=== PATIENT | female | born 1955 | race Caucasian/White ===

== ENCOUNTER 2020-03-10 13:24 | Outpatient (CLI) | payer MEDICARE ==
[2020-03-10 13:31] LABS: ABNORMAL LYMPHS % (MANUAL) 0 %; BAND NEUTROPHILS % (MANUAL) 0 %
[2020-03-10 17:02] LABS: ABSOLUTE RETICS # AUTO 0.066 10^6/uL (0.020-0.110); BASOPHILS % (AUTO) 0.4 %; EOSINOPHILS % (AUTO) 1.3 %; HGB - HEMOGLOBIN 12.6 g/dL (12.0-16.0); LYMPHOCYTES % (AUTO) 31.8 %; MEAN CORPUSCULAR HGB CONC 34.2 g/dL (32.0-36.0); MEAN CORPUSCULAR VOLUME 96.3 fL (81.0-99.0); MEAN PLATELET VOLUME 12.1 fL (7.9-10.8); MONOCYTES % (AUTO) 8.3 %; PLT - PLATELET COUNT 209 10^3/uL (130-450); RED BLOOD COUNT 3.82 10^6/uL (4.20-5.40); RED CELL DISTRIBUTION WIDTH 12.2 % (12.0-15.0); WHITE BLOOD COUNT 5.4 x10^3/uL (4.8-10.8)
[2020-03-10 17:10] LABS: ALBUMIN 4.7 g/dL (3.2-5.5); ALBUMIN/GLOBULIN RATIO 1.9 (1.0-2.2); BILIRUBIN,TOTAL 0.9 mg/dL (0.2-1.0); CALCIUM 9.8 mg/dL (8.5-10.3); CREATININE 0.5 mg/dL (0.4-1.0); TOTAL PROTEIN 7.2 g/dL (6.7-8.2)
[2020-03-10 17:56] LABS: LYMPHOCYTES # (MANUAL) 1.4 10^3/uL (1.5-3.5); LYMPHOCYTES % (MANUAL) 26 %; MONOCYTES # (MANUAL) 0.6 10^3/uL (0.0-1.0); PLATELET ESTIMATE, MANUAL NORMAL (130-450,000) (NORMAL); PLATELET MORPHOLOGY 1+ LARGE PLATELETS (NORMAL); RBC MORPHOLOGY (MULTIPLE) NORMAL APPEARANCE (NORMAL)
[2020-03-10 17:57] LABS: DIFFERENTIAL COMMENT MANUAL DIFFERENTIAL
== END 2020-03-10 13:25 | disposition home or self-care (01) ==
LOC: LAB.S 13:24
PROVIDERS: ATTEND Family Medicine
DX: D64.9 Anemia, unspecified (principal); D72.818 Other decreased white blood cell count; E67.3 Hypervitaminosis D; R79.89 Other specified abnormal findings of blood chemistry; E78.89 Other lipoprotein metabolism disorders
CPT/HCPCS: 36415; 80053; 82607; 82746; 83970; 85025; 85045

== ENCOUNTER 2021-02-21 10:53 | Outpatient (CLI) | payer MEDICARE, OTHER ==
--- NOTE | 2021-02-21 11:17 | XRAY Report ---
PROCEDURE: Ribs w/PA Chest LT INDICATIONS: LEFT RIB PAIN FOLLOWING TRAUMA TECHNIQUE: 3 views of the left ribs were acquired, along with a single view chest. COMPARISON: None. FINDINGS: Surgical changes and devices: None. Bones and chest wall: Minimal undulation of the 10th-11th posterolateral left ribs. No dislocations. No suspicious bony lesions. Overlying soft tissues appear unremarkable. Lungs and pleura: No pleural effusions or pneumothorax. Lungs appear clear. Mediastinum: Mediastinal contours appear normal. Heart size is normal. IMPRESSION: Question of nondisplaced left 10-11th posterolateral rib fractures. Lungs are clear. Reviewed by: Jori Graham MD on 02/21/2021 11:16 AM PDT Approved by: Joir Graham MD on 02/21/2021 11:16 AM PDT Station ID: [id number]
== END 2021-02-21 10:54 | disposition home or self-care (01) ==
LOC: DI.S 10:53
PROVIDERS: ATTEND Family Medicine
DX: R07.81 Pleurodynia (principal)

== ENCOUNTER 2021-04-19 12:39 | Outpatient (CLI) | payer MEDICARE, OTHER ==
[2021-04-19 15:18] LABS: BASOPHILS % (AUTO) 0.4 %; EOSINOPHILS # (AUTO) 0.1 10^3/uL (0.0-0.7); EOSINOPHILS % (AUTO) 1.9 %; HCT - HEMATOCRIT 39.5 % (37.0-47.0); HGB - HEMOGLOBIN 13.2 g/dL (12.0-16.0); LYMPHOCYTES # (AUTO) 1.6 10^3/uL (1.5-3.5); LYMPHOCYTES % (AUTO) 30.8 %; MEAN CORPUSCULAR HGB CONC 33.4 g/dL (32.0-36.0); MEAN CORPUSCULAR VOLUME 95.6 fL (81.0-99.0); MEAN PLATELET VOLUME 12.6 fL (7.9-10.8); MONOCYTES # (AUTO) 0.6 10^3/uL (0.0-1.0); MONOCYTES % (AUTO) 10.9 %; NEUTROPHILS # (AUTO) 2.9 10^3/uL (1.5-6.6); NEUTROPHILS % (AUTO) 55.8 %; PLT - PLATELET COUNT 199 10^3/uL (130-450); RED BLOOD COUNT 4.13 10^6/uL (4.20-5.40); RED CELL DISTRIBUTION WIDTH 12.2 % (12.0-15.0); WHITE BLOOD COUNT 5.2 x10^3/uL (4.8-10.8)
[2021-04-19 15:36] LABS: ALBUMIN 4.6 g/dL (3.2-5.5); ALBUMIN/GLOBULIN RATIO 1.5 (1.0-2.2); ALKALINE PHOSPHATASE 63 IU/L (42-121); ALT ALANINE AMINOTRANSFERASE 17 IU/L (10-60); AST ASPARTATE AMINOTRANSFERASE 23 IU/L (10-42); BILIRUBIN,TOTAL 0.7 mg/dL (0.2-1.0); BUN - BLOOD UREA NITROGEN 16 mg/dL (6-20); CALCIUM 9.8 mg/dL (8.5-10.3); CARBON DIOXIDE - CO2 31 mmol/L (21-32); CHLORIDE 98 mmol/L (101-111); CHOL/HDL RATIO 2.5 (<4.4); CHOLESTEROL 217 mg/dL; CREATININE 0.7 mg/dL (0.4-1.0); GFR - MDRD 83 (>89); GLUCOSE 93 mg/dL (70-100); HDL CHOLESTEROL 87 mg/dL; LDL CHOLESTEROL,CALCULATED 118 mg/dL; LDL/HDL RATIO 1.4 (<4.4); POTASSIUM 3.9 mmol/L (3.5-5.0); SODIUM 136 mmol/L (135-145); TOTAL PROTEIN 7.6 g/dL (6.7-8.2); TRIGLYCERIDES 60 mg/dL; VLDL CHOLESTEROL 12 mg/dL
[2021-04-19 15:47] LABS: THYROID STIMULATING HORMONE 2.07 uIU/mL (0.34-5.60)
[2021-04-19 15:49] LABS: FREE T3 3.21 pg/mL (2.5-3.9); FREE T4 (FREE THYROXINE) 0.81 ng/dL (0.58-1.64)
[2021-04-19 15:54] LABS: FERRITIN 108.1 ng/mL (11.0-306.8)
[2021-04-19 19:57] LABS: ESTIMATED AVERAGE GLUCOSE 97 mg/dL (70-100)
== END 2021-04-19 12:40 | disposition home or self-care (01) ==
LOC: LAB.S 12:39
PROVIDERS: ATTEND Family Medicine
DX: Z00.00 Encounter for general adult medical examination without abnormal findings (principal); E67.3 Hypervitaminosis D; D72.818 Other decreased white blood cell count; D64.9 Anemia, unspecified; R79.89 Other specified abnormal findings of blood chemistry; E87.8 Other disorders of electrolyte and fluid balance, not elsewhere classified; R63.5 Abnormal weight gain; G47.00 Insomnia, unspecified
CPT/HCPCS: 36415; 80053; 80061; 82306; 82607; 82728; 83036; 83721; 83921; 84439; 84443; 84481; 85025

== ENCOUNTER 2021-08-15 13:23 | Outpatient (CLI) | payer MEDICARE, OTHER ==
[2021-08-15 15:33] LABS: BASOPHILS % (AUTO) 0.3 %; EOSINOPHILS % (AUTO) 0.3 %; HCT - HEMATOCRIT 36.7 % (37.0-47.0); HGB - HEMOGLOBIN 12.3 g/dL (12.0-16.0); LYMPHOCYTES # (AUTO) 1.6 10^3/uL (1.5-3.5); LYMPHOCYTES % (AUTO) 20.3 %; MEAN CORPUSCULAR HEMOGLOBIN 31.5 pg (27.0-31.0); MEAN CORPUSCULAR HGB CONC 33.5 g/dL (32.0-36.0); MEAN CORPUSCULAR VOLUME 94.1 fL (81.0-99.0); MEAN PLATELET VOLUME 12.9 fL (7.9-10.8); MONOCYTES # (AUTO) 0.7 10^3/uL (0.0-1.0); MONOCYTES % (AUTO) 8.5 %; NEUTROPHILS # (AUTO) 5.4 10^3/uL (1.5-6.6); NEUTROPHILS % (AUTO) 70.5 %; PLT - PLATELET COUNT 189 10^3/uL (130-450); RED CELL DISTRIBUTION WIDTH 12.7 % (12.0-15.0); WHITE BLOOD COUNT 7.7 x10^3/uL (4.8-10.8)
--- NOTE | 2021-08-15 18:18 | XRAY Report ---
PROCEDURE: Chest 2 View X-Ray INDICATIONS: COUGH TECHNIQUE: 2 view(s) of the chest. COMPARISON: 02/21/2021. FINDINGS: Surgical changes and devices: None. Lungs and pleura: No pleural effusions or pneumothorax. Lungs are clear. Mediastinum: Mediastinal contours are normal. Heart size is normal. Bones and chest wall: No suspicious bony abnormalities. Soft tissues appear unremarkable. IMPRESSION: No evidence acute pulmonary process. Reviewed by: Conrado Clement MD on 08/15/2021 6:16 PM [facility] Approved by: Conrado Clement MD on 08/15/2021 6:16 PM [facility] Station ID: [id number]
== END 2021-08-15 13:24 | disposition home or self-care (01) ==
LOC: DI.S 13:23
PROVIDERS: ATTEND Family Medicine
DX: R05.3 Chronic cough (principal); R06.2 Wheezing; D72.818 Other decreased white blood cell count; D64.9 Anemia, unspecified
CPT/HCPCS: 36415; 85025

== ENCOUNTER 2022-06-23 10:06 | Outpatient (CLI) | payer MEDICARE, OTHER ==
[2022-06-23 14:34] LABS: BASOPHILS % (AUTO) 0.4 %; EOSINOPHILS # (AUTO) 0.1 10^3/uL (0.0-0.7); EOSINOPHILS % (AUTO) 1.2 %; HCT - HEMATOCRIT 39.4 % (37.0-47.0); HGB - HEMOGLOBIN 12.7 g/dL (12.0-16.0); LYMPHOCYTES # (AUTO) 1.7 10^3/uL (1.5-3.5); LYMPHOCYTES % (AUTO) 33.5 %; MEAN CORPUSCULAR HEMOGLOBIN 31.4 pg (27.0-31.0); MEAN CORPUSCULAR HGB CONC 32.2 g/dL (32.0-36.0); MEAN CORPUSCULAR VOLUME 97.5 fL (81.0-99.0); MEAN PLATELET VOLUME 12.4 fL (7.9-10.8); MONOCYTES # (AUTO) 0.5 10^3/uL (0.0-1.0); MONOCYTES % (AUTO) 9.4 %; NEUTROPHILS # (AUTO) 2.8 10^3/uL (1.5-6.6); NEUTROPHILS % (AUTO) 55.3 %; PLT - PLATELET COUNT 196 10^3/uL (130-450); RED BLOOD COUNT 4.04 10^6/uL (4.20-5.40); RED CELL DISTRIBUTION WIDTH 12.5 % (12.0-15.0)
== END 2022-06-23 10:07 | disposition home or self-care (01) ==
LOC: LAB.S 10:06
PROVIDERS: ATTEND Family Medicine
DX: D72.818 Other decreased white blood cell count (principal); D64.9 Anemia, unspecified
CPT/HCPCS: 36415; 85025

== ENCOUNTER 2022-09-14 08:34 | Outpatient (CLI) | payer MEDICARE, OTHER ==
[2022-09-14 14:53] LABS: BASOPHILS % (AUTO) 0.2 %; EOSINOPHILS # (AUTO) 0.1 10^3/uL (0.0-0.7); EOSINOPHILS % (AUTO) 1.1 %; HCT - HEMATOCRIT 37.4 % (37.0-47.0); HGB - HEMOGLOBIN 12.2 g/dL (12.0-16.0); LYMPHOCYTES # (AUTO) 1.4 10^3/uL (1.5-3.5); LYMPHOCYTES % (AUTO) 31.6 %; MEAN CORPUSCULAR HEMOGLOBIN 31.4 pg (27.0-31.0); MEAN CORPUSCULAR HGB CONC 32.6 g/dL (32.0-36.0); MEAN CORPUSCULAR VOLUME 96.1 fL (81.0-99.0); MEAN PLATELET VOLUME 12.5 fL (7.9-10.8); MONOCYTES # (AUTO) 0.4 10^3/uL (0.0-1.0); MONOCYTES % (AUTO) 9.1 %; NEUTROPHILS # (AUTO) 2.5 10^3/uL (1.5-6.6); NEUTROPHILS % (AUTO) 57.8 %; PLT - PLATELET COUNT 178 10^3/uL (130-450); RED BLOOD COUNT 3.89 10^6/uL (4.20-5.40); RED CELL DISTRIBUTION WIDTH 12.9 % (12.0-15.0); WHITE BLOOD COUNT 4.4 x10^3/uL (4.8-10.8)
[2022-09-14 15:17] LABS: % IRON SATURATION 33 % (20-50); ALBUMIN 4.5 g/dL (3.2-5.5); ALBUMIN/GLOBULIN RATIO 1.7 (1.0-2.2); ALKALINE PHOSPHATASE 48 IU/L (42-121); ALT ALANINE AMINOTRANSFERASE 16 IU/L (10-60); AST ASPARTATE AMINOTRANSFERASE 19 IU/L (10-42); BILIRUBIN,TOTAL 0.6 mg/dL (0.2-1.0); BUN - BLOOD UREA NITROGEN 24 mg/dL (6-20); CALCIUM 9.6 mg/dL (8.5-10.3); CARBON DIOXIDE - CO2 29 mmol/L (21-32); CHLORIDE 102 mmol/L (101-111); CHOL/HDL RATIO 2.9 (<4.4); CHOLESTEROL 231 mg/dL; CREATININE 0.7 mg/dL (0.4-1.0); GFR - MDRD 83 (>89); GLUCOSE 105 mg/dL (70-100); HDL CHOLESTEROL 81 mg/dL; IRON 113 ug/dL (28-170); LDL CHOLESTEROL,CALCULATED 137 mg/dL; LDL/HDL RATIO 1.7 (<4.4); POTASSIUM 3.8 mmol/L (3.5-5.0); SODIUM 138 mmol/L (135-145); TOTAL IRON BINDING CAPACITY 340 ug/dL (250-450); TOTAL PROTEIN 7.1 g/dL (6.7-8.2); TRANSFERRIN 243 mg/dL (192-382); TRIGLYCERIDES 63 mg/dL; VLDL CHOLESTEROL 13 mg/dL
[2022-09-14 15:23] LABS: THYROID STIMULATING HORMONE 1.82 uIU/mL (0.34-5.60)
[2022-09-14 15:24] LABS: FREE T3 3.28 pg/mL (2.5-3.9)
[2022-09-14 15:25] LABS: FREE T4 (FREE THYROXINE) 0.87 ng/dL (0.58-1.64)
[2022-09-14 15:30] LABS: FERRITIN 122.2 ng/mL (11.0-306.8)
[2022-09-14 21:05] LABS: ESTIMATED AVERAGE GLUCOSE 105 mg/dL (70-100); HEMOGLOBIN A1c% 5.3 % (4.27-6.07)
[2022-09-15 22:07] LABS: INSULIN 8.3 uIU/mL (2.6-24.9)
== END 2022-09-14 08:35 | disposition home or self-care (01) ==
LOC: LAB.S 08:34
PROVIDERS: ATTEND Family Medicine
DX: Z00.00 Encounter for general adult medical examination without abnormal findings (principal); D64.9 Anemia, unspecified; R79.89 Other specified abnormal findings of blood chemistry; E67.3 Hypervitaminosis D; E66.3 Overweight; R53.83 Other fatigue; E34.9 Endocrine disorder, unspecified
CPT/HCPCS: 36415; 80053; 80061; 82306; 82626; 82728; 83036; 83525; 83540; 83721; 84439; 84443; 84466; 84480; 84481; 84482; 85025

== ENCOUNTER 2022-12-07 11:16 | Outpatient (CLI) | payer MEDICARE, OTHER ==
--- NOTE | 2022-12-16 10:04 | Mammography Report ---
BILATERAL DIGITAL SCREENING MAMMOGRAM 3D/2D: 12/07/2022 CLINICAL: Routine screening. No prior exams were available for comparison. Both breasts are heterogeneously dense, which may obscure small masses (category c / 51-75% glandular tissue). There is an oval asymmetry with a circumscribed margin in the right breast anterior depth medial jenifer on seen on the craniocaudal view only. This localizes to the superior aspect on the tomosynthesis im ages. No other significant masses, calcifications, or other findings are seen in either breast. IMPRESSION: INCOMPLETE: NEEDS ADDITIONAL IMAGING EVALUATION The asymmetry in the right breast resembles a cyst and is indeterminate. Additional views with possible ultrasound are recommended. Based on the Tyrer Cuzick model (a risk assessment model) the patients lifetime risk is 7.5% and her 10 year risk is 4.5%. According to the ACR, ACS, and NCCN guidelines, an annual breast MRI exam alison g with mammogram is recommended if the patients lifetime risk is 20% or greater. This exam was interpreted at Station ID: [id number]. NOTE: For mammograms, a report in lay terms will be sent to the patient. Approximately 15% of breast malignancies will not be visualized mammographically. In the management of a palpable breast mass, a negative mammogram must not discourage biopsy of a clinically suspicious lesion. Electronically Signed By: Jori Graham M.D. slc/:12/15/2022 15:17:46 ACR BI-RADS Category 0: Incomplete 3340F PARENCHYMAL PATTERN: (D) - The breast(s) demonstrate(s) heterogeneously dense fibroglandular parfredericy ma. BI-RADS CATEGORY: (0) - 0 Mammo and [place] [id number] Immediate follow-up LATERALITY: (B)
== END 2022-12-07 11:17 | disposition home or self-care (01) ==
LOC: DI 11:16
PROVIDERS: ATTEND Family Medicine
DX: Z12.31 Encounter for screening mammogram for malignant neoplasm of breast (principal); R92.8 Other abnormal and inconclusive findings on diagnostic imaging of breast

== ENCOUNTER 2022-12-13 13:00 | Outpatient (CLI) | payer MEDICARE, OTHER | END 2022-12-13 13:01 | disposition critical access hospital (66) | LOC: EMS 13:00 | DX: R42 Dizziness and giddiness (principal); R11.2 Nausea with vomiting, unspecified | CPT/HCPCS: A0425; A0427 ==

== ENCOUNTER 2022-12-13 13:37 | Emergency (ER) | payer MEDICARE, OTHER ==
[2022-12-13] MEDS ORDERED: LORazepam 2 MG/ML VIAL IVP STA (13:41)
[2022-12-13] MEDS ORDERED: METOCLOPRAMIDE 10 MG/2 ML VIAL IVP STA (13:41)
--- NOTE | 2022-12-13 13:42 | ED Physician Documentation ---
PD HPI FOCAL NEURO - Stated complaint Stated Complaint: DIZZY/NAUSEA - History obtained from History obtained from: Patient, EMS - Additional information Additional information: Otherwise healthy 67-year-old woman was doing laundry at 11 AM when she suddenly developed severe spinning dizziness with severe nausea and vomiting. She had some ear ringing earlier which has resolved. It was in both ears she thinks. There is no associated headache or weakness, numbness, tingling of any extremity or disequilibrium or clumsiness. She feels much better if she keeps her eyes closed. She has had vertigo 3 to 4 months ago but states this is much worse. PD PAST MEDICAL HISTORY - Present Medications Home Medications: Ambulatory Orders Medication Instructions Recorded Confirmed LORazepam [Ativan] 1 mg PO TID PRN #12 tablet 12/13/22 Metoclopramide [Reglan] 10 mg PO Q6H PRN #20 tablet 12/13/22 Ondansetron Odt [Zofran] 4 mg TL Q6H PRN #10 tablet 12/13/22 - Allergies Allergies/Adverse Reactions: Allergies Allergy/AdvReac Type Severity Reaction Status Date / Time No Known Drug Allergies Allergy Verified 12/13/22 13:43 PD ED PE NORMAL - Vitals Vital signs reviewed: Yes - General General: Alert and oriented X 3, Other (She is feeling better with her eyes closed and retching.) - HEENT HEENT: PERRL, Other (She has rightward nystagmus on straight gaze.) - Neck Neck: Supple, no meningeal sign, No bony TTP - Cardiac Cardiac: RRR, No murmur - Respiratory Respiratory: No respiratory distress, Clear bilaterally - Abdomen Abdomen: Soft, Non tender - Back Back: No CVA TTP, No spinal TTP - Derm Derm: Normal color, Warm and dry - Extremities Extremities: No edema, No calf tenderness / cord - Neuro Neuro: Alert and oriented X 3, No motor deficit, No sensory deficit, Normal speech Results - Vitals Vitals: Vital Signs - 24 hr 12/13/22 12/13/22 12/13/22 13:43 15:04 17:00 Temperature 36.4 C L Heart Rate 90 91 79 Respiratory 22 18 15 Rate Blood Pressure 139/87 H 136/77 H 105/63 O2 Saturation 100 100 100 Oxygen O2 Source Room air - EKG (time done) 1439 EKG releavant findings:: EKG personally interpreted by author of this note. Relevant findings are: Rate: Rate (enter#) (92) Rhythm: NSR [place]: Normal Intervals: Normal WI, Prolonged QT QRS: Normal Ischemia: Non specific changes. No: ST elevation c/w ischemia, ST depression Compare to prior EKG: Old EKG unavailable - Labs Labs: Laboratory Tests 12/13/22 12/13/22 12/13/22 14:04 14:04 14:42 WBC 10.5 RBC 3.86 L Hgb 12.3 Hct 36.0 L MCV 93.3 MCH 31.9 H MCHC 34.2 RDW 12.3 Plt Count 183 MPV 11.2 H Neut # (Auto) 9.3 H Lymph # (Auto) 0.6 L Mason # (Auto) 0.6 Eos # (Auto) 0.0 Baso # (Auto) 0.0 Absolute Nucleated RBC 0.00 Nucleated RBC % 0.0 PT 10.8 INR 1.0 Sodium 139 Potassium 3.4 L Chloride 105 Carbon Dioxide 25 Anion Gap 9.0 BUN 24 H Creatinine 0.7 Estimated GFR (MDRD) 83 L Glucose 192 H Calcium 9.2 PD Medical Decision Making - ED course ED course: 67-year-old woman presents with severe vertigo with nausea With onset at 11 AM. Initially exam was very limited because of her symptomatology. She could not really open her eyes. As such we could not check for many of the cranial nerves. Could not check for ataxia. She was medicated with some Ativan and Reglan. On reevaluation at 2:10 PM, she has normal uktimy-gc-qkzp testing but has diplopia on leftward gaze. At that point suspicion for posterior CVA became much higher and a stroke code was called. She went over to CT, there was no bleed. She was seen by the telestroke neurologist, Dr. Darryl Cain who does not recommend tPA based on the minor symptoms but does agree with my assessment that she has some diplopia without obvious skew or ataxia. Recommends aspirin and bring her in the hospital for MRI. On reevaluation at 3:20 PM she is feeling much better. Still a bit dizzy and still be seeing double. We do not have MRI at this hospital until Wednesday, today being Wednesday and tomorrow being a holiday. After discussion with patient and what we agreed upon with be to observe her in the emergency department until 5 and make an admission decision at that point because if she was asymptomatic at that point she could have the MRI as an outpatient. On reevaluation at about 5:20 PM she was asymptomatic. Her diplopia had resolved. She wanted to go home. She passed a road test without ataxia. Departure - Departure Disposition: Home, Self Care Clinical Impression: Vertigo Condition: Good Record reviewed to determine appropriate education?: Yes Instructions: ED Vertigo Unspecified Prescriptions: LORazepam [Ativan] 1 mg PO TID PRN #12 tablet PRN Reason: Anxiety Metoclopramide [Reglan] 10 mg PO Q6H PRN #20 tablet PRN Reason: nausea or headache Ondansetron Odt [Zofran] 4 mg TL Q6H PRN #10 tablet PRN Reason: Nausea / Vomiting Comments: Follow-up with your primary care physician on Wednesday with consideration for MRI for reevaluation of vertigo. If the vertigo gets worse or you develop any other new or concerning symptoms please return immediately for reevaluation. I sent your prescriptions electronically to [facility] in [place].
[2022-12-13 14:15] LABS: BASOPHILS % (AUTO) 0.2 %; HGB - HEMOGLOBIN 12.3 g/dL (12.0-16.0); LYMPHOCYTES # (AUTO) 0.6 10^3/uL (1.5-3.5); MEAN CORPUSCULAR HEMOGLOBIN 31.9 pg (27.0-31.0); MEAN CORPUSCULAR HGB CONC 34.2 g/dL (32.0-36.0); MEAN CORPUSCULAR VOLUME 93.3 fL (81.0-99.0); MEAN PLATELET VOLUME 11.2 fL (7.9-10.8); MONOCYTES # (AUTO) 0.6 10^3/uL (0.0-1.0); MONOCYTES % (AUTO) 5.3 %; NEUTROPHILS # (AUTO) 9.3 10^3/uL (1.5-6.6); NEUTROPHILS % (AUTO) 88.2 %; PLT - PLATELET COUNT 183 10^3/uL (130-450); RED BLOOD COUNT 3.86 10^6/uL (4.20-5.40); RED CELL DISTRIBUTION WIDTH 12.3 % (12.0-15.0); WHITE BLOOD COUNT 10.5 x10^3/uL (4.8-10.8)
[2022-12-13 14:29] LABS: CALCIUM 9.2 mg/dL (8.5-10.3); CREATININE 0.7 mg/dL (0.4-1.0); POTASSIUM 3.4 mmol/L (3.5-5.0)
[2022-12-13] MEDS ORDERED: ASPIRIN CHEW 81 MG TABLET PO STA (14:48)
[2022-12-13] MEDS ORDERED: ONDANSETRON 4 MG/2 ML VIAL IVP STA (14:52)
--- NOTE | 2022-12-13 14:52 | CT Report ---
PROCEDURE: Head W/O Stroke Protocol INDICATIONS: Neuro deficit, acute, stroke suspected TECHNIQUE: Noncontrast 4.5 mm thick angled axial sections acquired from the foramen magnum to the vertex, with c oronal reformats. For radiation dose reduction, the following was used: automated exposure control, adjustment of mA and/or kV according to patient size. COMPARISON: None. FINDINGS: Image quality: Excellent. CSF spaces: Basal cisterns are patent. No extra-axial fluid collections. Ventricles are normal in size and shape. Brain: No midline shift. No intracranial masses or hemorrhage. Santoro-white matter interface is norm al. Skull and face: Calvarium and visualized facial bones are intact, without suspicious lesions. Sinuses: Visualized sinuses and mastoids are clear. IMPRESSION: 1. No CT evidence of acute intracranial process. 2. Findings discussed with Dr. Wallace in the emergency room at [address] [place] daylight time. This study fulfills neurological imaging criteria for inclusion or exclusion of acute stroke therapie s based on available published neurological imaging guidelines. Reviewed by: Sandrine Roach MD on 12/13/2022 1:50 PM [facility] Approved by: Sandrine Roach MD on 12/13/2022 1:50 PM [facility] Station ID: [id number]
[2022-12-13 14:53] LABS: PT - PROTHROMBIN TIME 10.8 secs (9.9-12.6)
--- NOTE | 2022-12-13 15:03 | CT Report ---
PROCEDURE: ANGIO HEAD W/WO INDICATIONS: vertigo with diplopia CONTRAST: 80ML OMNI 300 TECHNIQUE: Precontrast 4.5 mm thick angled axial sections acquired from the foramen magnum to the vertex. Afte r the administration of intravenous contrast, 1 mm thick sections acquired through the [place] of [place] is. Postcontrast 4.5 mm thick sections then re-acquired from the foramen magnum to the vertex. 3-di mensional njuxzom-qnkuikxrc-kkkwnwlror (MIP) and/or volume rendering reformats were acquired of the c entral intracranial vasculature. For radiation dose reduction, the following was used: automated ex posure control, adjustment of mA and/or kV according to patient size. COMPARISON: None FINDINGS: Image quality: Excellent. Anterior circulation: Intracranial internal carotid arteries are normal in size and flow. The flow within the paired anterior cerebral arteries is normal and symmetric. The flow within the middle cer ebral arteries is normal and symmetric. The anterior communicating artery is seen. No aneurysms are seen. Posterior circulation: Visualized portions of the vertebral arteries demonstrate normal caliber, and join to form a normal appearing basilar artery. Flow within the posterior cerebral arteries is norm al and symmetric. No aneurysms are seen. CSF spaces: Ventricles are normal in size and shape. Basal cisterns are patent. No extra-axial flu id collections. Brain: No midline shift. No intracranial bleeds or masses. Santoro-white matter interface appears int act. Skull and face: Calvarium and facial bones appear intact, without suspicious lesions. Sinuses: Visualized sinuses and mastoids are clear. IMPRESSION: 1. No CT evidence of acute process postcontrast. 2. Normal CT angiogram of the head. Reviewed by: Sandrine Roach MD on 12/13/2022 2:02 PM [facility] Approved by: Sandrine Roach MD on 12/13/2022 2:02 PM [facility] Station ID: [id number]
[2022-12-13] MEDS ORDERED: iohexoL-300 100 ML VIAL IVP ONE (15:12)
--- NOTE | 2022-12-13 15:18 | CT Report ---
PROCEDURE: ANGIO NECK W INDICATIONS: vertigo with diplopia CONTRAST: 80ML OMNI 300 TECHNIQUE: After the administration of intravenous contrast, 1.5 mm axial sections acquired from the aortic arch to the [place] of [place]. Coronal 3-D maximum intensity projection (MIP) and/or volume rendering ref ormats were then performed. For radiation dose reduction, the following was used: automated exposur e control, adjustment of mA and/or kV according to patient size. COMPARISON: None. FINDINGS: Image quality: Excellent. Carotid system: The great vessels demonstrate a conventional anatomy as they arise from the aortic a rch. The origins of the common carotid arteries appear patent. The common carotid arteries demonstr ate normal calibers and courses. The bifurcation regions appear normal bilaterally. There is mild c alcification at the left ICA origin. No significant luminal stenosis. The internal carotid arteries d emonstrate normal caliber and course. Posterior circulation: The origins of the vertebral arteries appear patent. The more superior porti ons of the vertebral arteries demonstrate normal course and caliber. They join to form a normal appe aring basilar artery. Soft tissues: Visualized neck soft tissues demonstrate no suspicious abnormalities. The thyroid is normal in size and there are no incidental findings. Bones: No suspicious bony lesions. Visualized cervical spine appears normally aligned. IMPRESSION: 1. No significant carotid or vertebral artery stenosis or dissection. 2. Minimal left ICA atherosclerotic calcification. The estimate of stenosis included in the report of the imaging study was calculated using the NASCET method Reviewed by: Sandrine Roach MD on 12/13/2022 2:17 PM [facility] Approved by: Sandrine Roach MD on 12/13/2022 2:17 PM [facility] Station ID: [id number]
[2022-12-13] MEDS ORDERED: ONDANSETRON ODT 4 MG Prepack 2 TL STA (17:47)
[2022-12-13] MEDS ORDERED: LORazepam 1 MG TABLET PO STA (17:47)
[2022-12-13 18:10] VITALS: BP 127/83
== END 2022-12-13 18:23 | disposition home or self-care (01) ==
LOC: EDUNIT# → ED 13:37
DX: R42 Dizziness and giddiness (principal)
CPT/HCPCS: 36415; 70450; 70496; 70498; 80048; 85025; 85610; 93005; 96374; 96375; 99284; A9270; J2060; J2765; J8499; Q9967

== ENCOUNTER 2022-12-15 15:37 | Outpatient (CLI) | payer MEDICARE, OTHER ==
--- NOTE | 2022-12-15 17:20 | MRI Report ---
PROCEDURE: MRI brain without contrast INDICATIONS: DIZZINESS TECHNIQUE: Noncontrast axial T1 spin echo, axial T2 fast spin echo, sagittal and axial FLAIR, coronal T2 fast sp in echo, axial gradient echo, axial diffusion and ADC through the brain. COMPARISON: None. FINDINGS: Image quality: Excellent. CSF Spaces: Basal cisterns are patent. No extra-axial fluid collections. Ventricles are normal in size and shape. Brain: No intracranial masses or hemorrhage. Santoro/white matter interface is normal. Brainstem appe ars normal. Diffusion-weighted images no acute infarct. There is moderate white matter chronic ische lesly change in mild cerebral and cerebellar atrophy present. Skull and face: Calvarium has normal marrow signal. Orbits appear normal. Sinuses: Sinuses and mastoids are clear. IMPRESSION: Atrophy and chronic ischemic change without acute infarct, hemorrhage or mass lesion Reviewed by: Temo Claudio MD on 12/15/2022 4:19 PM [facility] Approved by: Temo Claudio MD on 12/15/2022 4:19 PM [facility] Station ID: [id number]
== END 2022-12-15 15:38 | disposition home or self-care (01) ==
LOC: DI 15:37
PROVIDERS: ATTEND Family Medicine
DX: R42 Dizziness and giddiness (principal); R11.10 Vomiting, unspecified; G31.89 Other specified degenerative diseases of nervous system; I67.82 Cerebral ischemia

== ENCOUNTER 2023-01-15 12:21 | Outpatient (CLI) | payer MEDICARE, OTHER ==
--- NOTE | 2023-01-18 10:53 | Ultrasound Report ---
LIMITED ULTRASOUND OF RIGHT BREAST: 01/15/2023 CLINICAL: Patient returns today to evaluate an asymmetry in the right breast. Comparison is made to exams dated: 01/15/2023 mammogram and 12/07/2022 mammogram - [facility]. Real-time ultrasound of the right breast 1-2 o'clock region was performed. Santoro scale images of the real-time examination were reviewed. No significant abnormalities were seen sonographically in the right breast. IMPRESSION: PROBABLY BENIGN There is no abnormality seen in the right breast to correspond with the mammography finding which lik flip represents normal fibroglandular tissue. A follow-up right mammogram and right ultrasound in 6 months is recommended to demonstrate stability. Findings and recommendations were conveyed to the patient during today's evaluation. This exam was interpreted at Station ID: [id number]. Electronically Signed By: Thomas Becerra M.D. aty/:01/15/2023 15:25:29 Ultrasound BI-RADS: 3 Probably benign BI-RADS CATEGORY: (3) - 3 Mammo and [place] [id number] 6 month follow-up LATERALITY: (R)
--- NOTE | 2023-01-18 10:53 | Mammography Report ---
UNILATERAL RIGHT DIGITAL DIAGNOSTIC MAMMOGRAM 3D/2D WITH SPOT COMPRESSION: 01/15/2023 CLINICAL: Patient returns today to evaluate an asymmetry in the right breast. Comparison is made to exam dated: 12/07/2022 mammogram - [facility]. The right breast is heterogeneously dense, which may obscure small masses (category c / 51-75% glandu lar tissue). There is a 1.2 cm oval equal density asymmetry with a circumscribed margin in the right breast anteri or depth medial region seen on the craniocaudal view only. This is not confirmed in today's addition al views. This is less prominent. No other significant masses or calcifications are seen in the breast. IMPRESSION: INCOMPLETE: NEEDS ADDITIONAL IMAGING EVALUATION The possible 1.2 cm oval equal density asymmetry in the right breast resembles a cyst or fibroglandu lar tissue and is indeterminate. An ultrasound is recommended for further evaluation and is scheduled to immediately follow this examination. Based on the Tyrer Cuzick model (a risk assessment model) the patients lifetime risk is 7.5% and her 10 year risk is 4.5%. According to the ACR, ACS, and NCCN guidelines, an annual breast MRI exam alison g with mammogram is recommended if the patients lifetime risk is 20% or greater. This exam was interpreted at Station ID: [id number]. NOTE: For mammograms, a report in lay terms will be sent to the patient. Approximately 15% of breast malignancies will not be visualized mammographically. In the management of a palpable breast mass, a negative mammogram must not discourage biopsy of a clinically suspicious lesion. Electronically Signed By: Thomas Becerra M.D. aty/:01/15/2023 15:23:32 ACR BI-RADS Category 0: Incomplete 3340F PARENCHYMAL PATTERN: (D) - The breast(s) demonstrate(s) heterogeneously dense fibroglandular parenchy ma. BI-RADS CATEGORY: (0) - 0 Ultrasound [id number] Immediate follow-up LATERALITY: (R)
== END 2023-01-15 12:22 | disposition home or self-care (01) ==
LOC: DI 12:21
PROVIDERS: ATTEND Family Medicine
DX: R92.8 Other abnormal and inconclusive findings on diagnostic imaging of breast (principal)

== ENCOUNTER 2023-01-20 14:17 | Outpatient (CLI) | payer MEDICARE, OTHER ==
--- NOTE | 2023-01-20 15:14 | DEXA Report ---
PROCEDURE: Dexa Spine and/or Hip INDICATIONS: POST MENOPAUSAL TECHNIQUE: Dual energy x-ray absorptiometry (DXA) was performed on a DropMat System. Regions measur ed are the AP Spine, femoral neck, and if needed forearm. COMPARISON: None FINDINGS: Lumbar Spine: Bone Mineral Density 0.963 g/cm/cm, T score -1.8. Osteopenia Left Femoral Neck: Bone Mineral Density 0.694 g/cm/cm, T score -2.5. Osteoporosis Left Hip: Bone Mineral Density 0.766 g/cm/cm, T score -1.9. Osteopenia (T score greater or equal to -1.0: NORMAL) (T score from -1.1 to -2.4: OSTEOPENIA) (T score less than or equal to -2.5 to: OSTEOPOROSIS) Impression: By WHO criteria, this patient has osteoporosis. Patients with diagnosis of osteoporosis or osteopenia should have regular bone mineral density assess ment. For those eligible for Medicare, routine testing is allowed once every 2 years. Testing frequ ency can be increased for patients who have rapidly progressing disease or for those who are receivin g medical therapy to restore bone mass. Reviewed by: Jori Graham MD on 01/20/2023 3:13 PM PDT Approved by: Jori Graham MD on 01/20/2023 3:13 PM PDT Station ID: [id number]
== END 2023-01-20 14:18 | disposition home or self-care (01) ==
LOC: DI 14:17
PROVIDERS: ATTEND Family Medicine
DX: Z78.0 Asymptomatic menopausal state (principal); M81.0 Age-related osteoporosis without current pathological fracture

== ENCOUNTER 2023-09-01 12:30 | Outpatient (CLI) | payer MEDICARE, OTHER ==
--- NOTE | 2023-09-02 09:03 | Mammography Report ---
UNILATERAL RIGHT DIGITAL DIAGNOSTIC MAMMOGRAM 3D/2D: 09/01/2023 CLINICAL: Patient returns for a 6 month follow up of the right breast. Comparison is made to exams dated: 01/15/2023 mammogram and 12/07/2022 mammogram - [facility]. The right breast is heterogeneously dense, which may obscure small masses (category c / 51-75% glandu lar tissue). There is a stable asymmetry in the right breast anterior depth medial region seen on the craniocaudal view only. This was not seen on the prior ultrasound. No other significant masses or calcifications are seen in the breast. IMPRESSION: PROBABLY BENIGN The stable asymmetry in the right breast most likely is fibroglandular tissue and is probably benign. A follow-up mammogram in 6 months is recommended to demonstrate stability. Patient will be due for left breast mammogram at that time. Exam findings were conveyed to the patient. Based on the Tyrer Cuzick model (a risk assessment model) the patient's lifetime risk is 7.5% and her 10 year risk is 4.5%. According to the ACR, ACS, and NCCN guidelines, an annual breast MRI exam alison g with mammogram is recommended if the patient's lifetime risk is 20% or greater. This exam was interpreted at Station ID: [id number]. NOTE: For mammograms, a report in lay terms will be sent to the patient. Approximately 15% of breast malignancies will not be visualized mammographically. In the management of a palpable breast mass, a negative mammogram must not discourage biopsy of a clinically suspicious lesion. Electronically Signed By: Jori Graham M.D. slc/:09/01/2023 13:04:31 ACR BI-RADS Category 3: Probably benign 3343F PARENCHYMAL PATTERN: (D) - The breast(s) demonstrate(s) heterogeneously dense fibroglandular parenchy ma. BI-RADS CATEGORY: (3) - 3 Mammogram [id number] 6 month follow-up LATERALITY: (B)
== END 2023-09-01 12:31 | disposition home or self-care (01) ==
LOC: DI 12:30
PROVIDERS: ATTEND Family Medicine
DX: R92.8 Other abnormal and inconclusive findings on diagnostic imaging of breast (principal); R92.331 Mammographic heterogeneous density, right breast

== ENCOUNTER 2023-12-14 15:30 | Outpatient (CLI) | payer MEDICARE, OTHER ==
--- NOTE | 2023-12-14 16:53 | XRAY Report ---
PROCEDURE: Knee 3V RT INDICATIONS: RIGHT KNEE PAIN TECHNIQUE: 3 views of the knee(s) were acquired. COMPARISON: None. FINDINGS: Bones: No fractures or dislocations. No suspicious bony lesions. Tricompartmental joint space zach rowing with associated osteophytosis. Soft tissues: Small knee joint effusion. No suspicious soft tissue calcifications or masses. IMPRESSION: No acute bony abnormality. Mild to moderate tricompartmental osteoarthritis. Kellgren-Jevon scale of osteoarthritis: 2. Reviewed by: Sky Grier MD on 12/14/2023 4:52 PM PDT Approved by: Sky Grier MD on 12/14/2023 4:52 PM PDT Station ID: [id number]
== END 2023-12-14 15:31 | disposition home or self-care (01) ==
LOC: DI.S 15:30
PROVIDERS: ATTEND Family Medicine
DX: M17.11 Unilateral primary osteoarthritis, right knee (principal)

== ENCOUNTER 2024-01-17 11:12 | Outpatient (CLI) | payer MEDICARE, OTHER ==
--- NOTE | 2024-01-17 19:35 | XRAY Report ---
PROCEDURE: Lumbar Spine 2-3V INDICATIONS: BACK PAIN TECHNIQUE: 2 views of the lumbar spine were acquired. COMPARISON: None. FINDINGS: Surgical change: None. Bones: 5 [id number]-vhyxfmr vertebrae are present. There is normal bony alignment. No vertebral body co mpression fractures. No suspicious bony lesions. Lower lumbar facet arthropathy Soft tissues: Overlying bowel gas pattern is normal. No suspicious soft tissue calcifications. IMPRESSION: Lower lumbar facet arthropathy. No acute bony abnormality. Reviewed by: Conrado Clement MD on 01/17/2024 7:34 PM PDT Approved by: Conrado Clement MD on 01/17/2024 7:34 PM PDT Station ID: [id number]
== END 2024-01-17 11:13 | disposition home or self-care (01) ==
LOC: DI 11:12
PROVIDERS: ATTEND Family Medicine
DX: M47.816 Spondylosis without myelopathy or radiculopathy, lumbar region (principal)

== ENCOUNTER 2024-01-19 17:21 | Outpatient (CLI) | payer MEDICARE, OTHER | END 2024-01-19 17:22 | disposition critical access hospital (66) | LOC: EMS 17:21 | DX: M79.652 Pain in left thigh (principal) | CPT/HCPCS: A0425; A0429 ==

== ENCOUNTER 2024-01-27 08:02 | Outpatient (CLI) | payer MEDICARE, OTHER ==
--- NOTE | 2024-01-27 12:50 | MRI Report ---
PROCEDURE: Lumbar Spine WO INDICATIONS: LUMBOSACRAL RADICULOPATHY TECHNIQUE: Noncontrast sagittal T1 spin echo and T2 fast echo, sagittal STIR, axial T1 and T2 fast spin echo thr ough the lumbar spine. In cases with scoliosis, additional coronal T2 fast spin echo may be performe d. COMPARISON: Correlation is made with lumbar plain films, 01/17/2024. FINDINGS: Image quality: Motion artifact is noted. Alignment and Curvature: There is normal bony alignment. Bone Marrow: Marrow is of normal overall signal. No acute vertebral body compression fractures. Spinal Cord: Conus medullaris terminates at the L1-L2 level. Visualized cord demonstrates normal si gnal and size. Paraspinous Soft Tissues: No paravertebral masses. T12-L1: Normal in appearance. L1-L2: Normal in appearance. L2-L3: Normal in appearance. L3-L4: The disc height is relatively well preserved. Mild disc bulge is seen, with a central/left d isc extrusion, with superior migration of the disc material. This can be seen on series 3 image 11 an d on series 6 image 26. The extruded disc material measures 13 mm craniocaudal. Mild facet hypertrop hy is seen. No significant neuroforaminal narrowing is seen. Mild central canal narrowing is seen. T here is mass effect seen upon the regional nerve roots from the disc extrusion, including upon the tr ansiting left L4 nerve root. L4-L5: The disc height is relatively well preserved. Mild disc bulge is seen. Mild facet hypert rophy is seen. Mild to moderate bilateral neuroforaminal narrowing is seen. Mild central canal narr owing is seen. L5-S1: The disc height and disc signal are well preserved. Mild disc bulge is seen. Mild facet hypertrophy is seen. There is mild left-sided and no right-sided neuroforaminal narrowing. No central canal narrowing is seen. IMPRESSION: At the L3-L4 level, there is a significant central/left disc extrusion present. Reviewed by: Alejandro Ignacio MD on 01/27/2024 11:48 AM ALFRED Approved by: Alejandro Ignacio MD on 01/27/2024 11:48 AM AKDOMONIQUE Station ID: [id number]
== END 2024-01-27 08:03 | disposition home or self-care (01) ==
LOC: DI 08:02
PROVIDERS: ATTEND Family Medicine
DX: M79.652 Pain in left thigh (principal); M51.16 Intervertebral disc disorders with radiculopathy, lumbar region